=== PATIENT | male | born 1940 | race African-American/Black ===

== ENCOUNTER → 2017-02-27 | Outpatient (CLI) | payer MEDICARE ==
--- NOTE | ~2017-02-27 | US5 ---
[facility] A Service of [facility] RADIOLOGY TEXT RESULTS PATIENT: Manuel SANTOS LOCATION: [facility] : 36 UNIT #: [id number] AGE: [address]: JUAN JAY MD SEX: M ORDER DR: [id number] [facility] [address] [place], [place] [address] [id number] O MR#: [id number] Acc #: [id number] NAME: Manuel SANTOS : 1940 SEX: M STUDY DATE/TIME: 02/27/2017 10:12 UNIT: [facility] ROOM: STUDY DESCRIPTION: US Abdominal Complete Attending Physician: Juan Jay M.D. Referring Physician: Juan Jay M.D. Ordering Physician: Juan Jay M.D. Primary Care Physician: Juan Jay M.D. MEDICAL IMAGING REPORT This report is preliminary unless electronic signature is present EXAM Abdominal ultrasound INDICATIONS Unexplained weight loss of 15 pounds with nausea and vomiting over the past month. PROCEDURE Theodore-scale and Doppler imaging of the abdomen. COMPARISON None. FINDINGS Liver measures 12 cm. No liver mass on submitted images. Right kidney measures 8.7 cm. There is a hypoechoic region in the right mid kidney that measures up to 2.1 cm. Unremarkable gallbladder. Common duct measures 5 mm. Spleen measures 9 cm. Left kidney measures 10.2 cm. No obvious hydronephrosis. Submitted images abdominal aorta and inferior vena cava unremarkable. IMPRESSION 1. No acute findings. 2. A 2.1 cm hypoechoic region in the right mid kidney is nonspecific. It could be a normal structure such as a column of Mason. This would be best evaluated with contrast-enhanced MRI or CT with renal protocol. Dictated by... Connor Hodges M.D. [facility] A Service [facility] RADIOLOGY TEXT RESULTS PATIENT: Manuel SANTOS LOCATION: [facility] : 36 UNIT #: [id number] AGE: [address]: JUAN JAY MD SEX: M ORDER DR: THIS IS AN ELECTRONICALLY VERIFIED REPORT Connor Hodges M.D. at 02/27/2017 10:23 PM DERREK/kofi TD: 02/27/2017 21:06 JOB #: [id number] MEDICAL IMAGING REPORT Page 1 of 1 COPY
== END | disposition home or self-care (01) ==
LOC: CGUS 09:42
DX: R63.4 Abnormal weight loss (principal); R11.2 Nausea with vomiting, unspecified
CPT/HCPCS: 76700

== ENCOUNTER → 2017-04-11 | Outpatient (CLI) | payer MEDICARE ==
--- NOTE | ~2017-04-11 | CT6 ---
[facility] A Service of [facility] RADIOLOGY TEXT RESULTS PATIENT: Manuel SANTOS LOCATION: [facility] #: [id number] : 36 UNIT #: [id number] AGE: [address]: JUAN JAY MD SEX: M ORDER DR: [id number] [facility] [address] [place], [place] [address] [id number] O MR#: [id number] [facility] #: [id number] NAME: Manuel SANTOS : 1940 SEX: M STUDY DATE/TIME: 04/11/2017 10:36 UNIT: [facility] ROOM: STUDY DESCRIPTION: CT Abdomen WWo Cont Attending Physician: Juan Jay M.D. Referring Physician: Juan Jay M.D. Ordering Physician: Juan Jay M.D. Primary Care Physician: Juan Jay M.D. MEDICAL IMAGING REPORT This report is preliminary unless electronic signature is present EXAM CT abdomen with and without contrast INDICATIONS Unexplained weight loss over the past 2 months. Renal mass on previous ultrasound. 8 pound weight loss in the past 2 months. Observation for malignancy. PROCEDURE Unenhanced CT of the abdomen. Multiphase postcontrast CT of the abdomen, with attention to the kidneys. The CT exam was performed with one or more of the following radiation dose reduction techniques: automatic exposure control, adjustment of mA and/or kV according to patient size, and iterative reconstruction. COMPARISON Abdominal ultrasound 02/27/1979 FINDINGS Abdomen without contrast. There is some peribronchial thickening in the central right middle lobe and right lower lobe similar to the chest CT on 10/29/2016 but slightly increased. This is only partially included otherwise included lung bases are clear. No radiodense gallstones or renal calculi. Abdomen with contrast: The kidneys show symmetric enhancement. No renal mass. There is a 8 mm cyst in the lower pole of the right kidney. Symmetric excretion of contrast. No abnormal filling defect in the collecting systems. [facility] A Service [facility] RADIOLOGY TEXT RESULTS PATIENT: Manuel SANTOS LOCATION: [facility] #: [id number] : 36 UNIT #: [id number] AGE: [address]: JUAN JAY MD SEX: M ORDER DR: There is a 1.2 cm cyst in segment 4 of the liver. The spleen, adrenal glands, pancreas, and gallbladder show no acute abnormality. Included bowel loops are nondilated. Moderate colonic stool burden. No aggressive appearing bone lesion. IMPRESSION 1. No evidence for an enhancing renal mass. Finding on the previous ultrasound, probably represented a normal anatomic findings. 2. Tiny cyst in the lower pole of the right kidney and a small hepatic cyst. 3. Partially included increased thickening around the bronchi in the central right middle lobe and right lower lobe. This could represent scarring or findings of bronchitis. Correlate with any current symptoms. Dictated by... Connor Hodges M.D. THIS IS AN ELECTRONICALLY VERIFIED REPORT Connor Hodges M.D. at 04/15/2017 8:27 AM DERREK/will TD: 04/14/2017 14:44 JOB #: [id number] MEDICAL IMAGING REPORT Page 1 of 1 COPY
[2017-04-11 11:30] LABS: POC - CREATININE 0.92 mg/dL (0.64-1.27); POC - GFR >60.0 mL/min (>60)
== END | disposition home or self-care (01) ==
LOC: CCAT 09:43
PROVIDERS: Family Medicine
DX: R63.4 Abnormal weight loss (principal); K76.89 Other specified diseases of liver
CPT/HCPCS: 74170; 82565; Q9967

== ENCOUNTER 2017-05-19 10:06 | Emergency (ER) | payer MEDICARE ==
[~2017-05-19] VITALS: Ht 172.7 cm; Wt 72.6 kg
== END 2017-05-19 12:23 | disposition home or self-care (01) ==
LOC: CFTX 10:06 → CED 10:06 → CFTX 11:56
DX: R04.0 Epistaxis (principal); I10 Essential (primary) hypertension; E11.9 Type 2 diabetes mellitus without complications
CPT/HCPCS: 99283